=== PATIENT | male | born 1965 | race American Indian/Alaskan Native ===

== ENCOUNTER 2017-08-28 10:55 | Day surgery (SDC) | payer BC ==
[2017-08-23 10:30] VITALS: BMI 29.5
[2017-08-28] MEDS ORDERED: Lactated Ringer's 1,000 ML IV SCH (14:15)
[2017-08-28] MEDS ORDERED: Propofol 10 mg/ml Inj (20 ML) ONE ×2 (14:25→17:26)
[2017-08-28 16:30] VITALS: PULSE 81; RESP 18; TEMP 98.8; O2SAT 96
[2017-08-28 17:28] VITALS: BP 156/92
[2017-08-28] MEDS ORDERED: Etomidate 20 mg/10ml Inj IV ONE (17:39)
== END 2017-08-28 17:10 | disposition home or self-care (01) ==
LOC: ENDO 10:55
PROVIDERS: ATTEND Internal Medicine Gastroenterology
DX: Z12.11 Encounter for screening for malignant neoplasm of colon (principal); K63.5 Polyp of colon; K64.8 Other hemorrhoids; K63.89 Other specified diseases of intestine
CPT/HCPCS: 45380; 88305; J2001; J2704; J3010; J7040; J7120

== ENCOUNTER 2018-01-29 18:02 | Emergency (ER) | payer BC ==
[2018-01-29 18:03] VITALS: BMI 29.5
[2018-01-29 18:14] VITALS: O2SAT 96
[2018-01-29] MEDS ORDERED: TRIAMCINOLONE 0.1% TOP STA (18:26)
--- NOTE | 2018-01-29 18:35 | ED PDOC ---
Arrival/HPI - General Chief Complaint: Bite Time Seen by Provider: 01/29/18 18:26 Historian: Patient - History of Present Illness Narrative History of Present Illness (Text): 01/29/18 18:26 This 52 yo male who denies pmh, presents to this ED c/o bee sting x 45 minutes ago. Patient stated while driving his car, a bee stung his left upper back. He stated he was able to take bee from his back. Patient feels a mild "needle" sensation on the stung area. Patient stated last tetanus was 2 years ago. Patient denies sob, wheezing, skin rash, dizziness, tongue swelling, lip swelling, dysphagia, or other somatic complains. Time/Duration: Other (see hpi) Context: Home Past Medical History - Provider Review Nursing Documentation Reviewed: Yes - Infectious Disease Hx of Infectious Diseases: None - Cardiac Hx Pacemaker: No - Neurological Hx Paralysis: No - Hematological/Oncological Hx Blood Transfusions: No - Musculoskeletal/Rheumatological Hx Musculoskeletal Disorders: No - Psychiatric Hx Emotional Abuse: No Hx Physical Abuse: No Hx Substance Use: No - Anesthesia Hx Anesthesia Reactions: No Hx Malignant Hyperthermia: No - Suicidal Assessment Feels Threatened In Home Enviroment: No Family/Social History - Physician Review Nursing Documentation Reviewed: Yes Family/Social History: Other (noncontributory) Smoking Status: Never Smoked Hx Alcohol Use: Yes (OCCASIONAL) Frequency of alcohol use: Socially Hx Substance Use: No Hx Substance Use Treatment: No Allergies/Home Meds Allergies/Adverse Reactions: Allergies No Known Allergies Allergy (Verified 01/29/18 18:15) Review of Systems - Review of Systems Constitutional: Normal. absent: Fatigue, Weight Change, Fevers Eyes: Normal ENT: Normal. absent: Sore Throat, Sinus Congestion Respiratory: Normal. absent: SOB, Cough, Sputum, Wheezing Cardiovascular: Normal. absent: Chest Pain, Palpitations Gastrointestinal: Normal Genitourinary Male: Normal Musculoskeletal: Normal Skin: Other (see hpi, bee sting). absent: Rash, Pruritis, Skin Lesions, Laceration, Abscess, Ulcer, Cellulitis Neurological: Normal Endocrine: Normal Hemo/Lymphatic: Normal Psychiatric: Normal Physical Exam Vital Signs Temp Pulse Resp BP Pulse Ox 01/29/18 18:11 98.6 F 75 16 157/83 H 96 01/29/18 18:03 98.6 F 75 16 157/83 H 96 Temperature: Afebrile Blood Pressure: Normal Pulse: Regular Respiratory Rate: Normal Appearance: Positive for: Well-Appearing, Non-Toxic, Comfortable Pain Distress: None Mental Status: Positive for: Alert and Oriented X 3 - Systems Exam Head: Present: Atraumatic, Normocephalic Pupils: Present: PERRL Extroacular Muscles: Present: EOMI Conjunctiva: Present: Normal Mouth: Present: Moist Mucous Membranes Neck: Present: Normal Range of Motion Respiratory/Chest: Present: Clear to Auscultation, Good Air Exchange. No: Respiratory Distress, Accessory Muscle Use Cardiovascular: Present: Regular Rate and Rhythm, Normal S1, S2. No: Murmurs Abdomen: No: Tenderness, Distention, Peritoneal Signs Back: Present: Normal Inspection. No: CVA Tenderness, Midline Tenderness, Paraspinal Tenderness, Pain with Leg Raise Upper Extremity: Present: Normal Inspection, Normal ROM, NORMAL PULSES, Capillary Refill < 2s. No: Cyanosis, Edema Lower Extremity: Present: Normal Inspection, NORMAL PULSES, Normal ROM, Neurovascularly Intact, Capillary Refill < 2 s. No: Edema Neurological: Present: GCS=15, CN II-XII Intact, Speech Normal Skin: Present: Warm, Dry, Normal Color, Other ((+) left mid back local skin reaction, approx. 1.5 cm. no bee sting was visualized, only urticaria like rash. No cellulitis.). No: Rashes Psychiatric: Present: Alert, Oriented x 3, Normal Insight, Normal Concentration Medical Decision Making ED Course and Treatment: 01/29/18 18:46 Re-evaluation. Patient feels better. Discussed results and plan with patient who expresses understanding. All questions answered and there is agreement with the plan to discharge home with instructions. Patient stable for discharge. Return if symptoms persist or worsen. Re-evaluation Time: 18:46 Reassessment Condition: Re-examined, Improved - Medication Orders Current Medication Orders: Discontinued Medications Ibuprofen (Motrin Tab) 600 mg PO STAT STA Stop: 01/29/18 18:28 Triamcinolone Acetonide (Triamcinolone 0.1% Oint) 0 gm TOP STAT STA Stop: 01/29/18 18:27 Disposition/Present on Arrival - Present on Arrival Any Indicators Present on Arrival: No History of DVT/PE: No History of Uncontrolled Diabetes: No Urinary Catheter: No History of Decub. Ulcer: No History Surgical Site Infection Following: None - Disposition Have Diagnosis and Disposition been Completed?: Yes Diagnosis: Bee sting Disposition: HOME/ ROUTINE Disposition Time: 18:46 Patient Plan: Discharge Condition: GOOD Discharge Instructions (ExitCare): Insect Bites and Stings (DC) Additional Instructions: Call private doctor for follow up visit in 1-2 days. Take medication as instructed. Return to emergency if you develop shortness of breath, throat swelling, lips/ tongue swelling, wheezing, skin rash, dizziness, or if symptoms worsen Prescriptions: Ibuprofen [Motrin] 400 mg PO Q8H PRN #20 tab PRN Reason: Pain, Severe (8-10) Referrals: aMrcos Rmoero MD [Primary Care Provider] - Follow up with primary Forms: [employer] (Azeri)
[2018-01-29 19:11] VITALS: BP 150/80; PULSE 76; RESP 18; TEMP 98.2
== END 2018-01-29 19:08 | disposition home or self-care (01) ==
LOC: ED 18:02
DX: T63.441A Toxic effect of venom of bees, accidental (unintentional), initial encounter (principal); Y92.89 Other specified places as the place of occurrence of the external cause